=== PATIENT | female | born 1960 | race Caucasian/White ===

== ENCOUNTER 2024-08-19 04:15 | Emergency (ER) | payer OTHER ==
[~2024-08-19] VITALS: Ht 160 cm; Wt 56.7 kg
[2024-08-19] MEDS ORDERED: Ipratropium/Albuterol SulF 2.5-0.5MG/3 ML Amp INH ONE (06:05)
[2024-08-19] MEDS ORDERED: Fluticasone 0.05% Nasal Spray SCH (06:05)
[2024-08-19] MEDS ORDERED: Albuterol 2.5 MG/3 ML VIAL INH SCH (06:45)
[2024-08-19] MEDS ORDERED: DELTASONE20 MG PO (07:01)
== END 2024-08-19 07:23 | disposition home or self-care (01) ==
LOC: ER 04:15
DX: R05.3 Chronic cough (principal); Z88.2 Allergy status to sulfonamides
CPT/HCPCS: 71046; 87081; 87430; 94640; 94644; 94664; 99284-25; A9270

== ENCOUNTER 2024-10-30 22:16 | Emergency (ER) | payer OTHER ==
[~2024-10-30] VITALS: Ht 160 cm; Wt 56.7 kg
[~2024-10-30 22:16] MED LIST: DELTASONE20 MG PO
[2024-10-30] MEDS ORDERED: Ipratropium/Albuterol SulF 2.5-0.5MG/3 ML Amp INH PRN (22:30)
[2024-10-30 22:44] LABS: BASOPHILS ABSOLUTE AUTO 0.08 K/mm3 (0.00-0.23); BASOPHILS PERCENT AUTO 1 % (0-2); EOSINOPHILS ABSOLUTE AUTO 0.52 K/mm3 (0.00-0.68); EOSINOPHILS PERCENT AUTO 6 % (0-6); Hematocrit 42.9 % (33.0-51.0); Hemoglobin 14.4 g/dL (11.5-16.0); IMMATURE GRAN ABSOLUTE AUTO 0.09 K/mm3 (0.00-0.10); IMMATURE GRAN PERCENT AUTO 1 % (0-1); LYMPHOCYTES ABSOLUTE AUTO 3.18 K/mm3 (0.84-5.20); LYMPHOCYTES PERCENT AUTO 35 % (21-46); MONOCYTES ABSOLUTE AUTO 0.68 K/mm3 (0.16-1.47); MONOCYTES PERCENT AUTO 7 % (4-13); Mean Corpuscular HGB 32.1 pg (26.0-34.0); Mean Corpuscular HGB Conc 33.6 g/dL (31.5-36.5); Mean Corpuscular Volume 96 fL (80-100); Mean Platelet Volume 9.1 fL (9.1-12.4); NEUTROPHILS ABSOLUTE AUTO 4.65 K/mm3 (1.96-9.15); NEUTROPHILS PERCENT AUTO 50 % (41-73); Platelet Count 265 K/mm3 (150-400); RDW Coefficient Variation 12.7 % (11.7-14.2); RDW Standard Deviation 45.4 fL (35.1-46.3); Red Blood Cell Count 4.48 M/mm3 (3.80-5.20)
[2024-10-30 23:04] LABS: Albumin, Blood 3.3 g/dL (3.4-5.0); Albumin/Globulin Ratio 0.9 (0.8-1.8); Bilirubin, Total 0.6 mg/dL (0.1-1.0); Bun/Creatinine Ratio 12.5 (12.0-20.0); Creatinine, Blood 0.88 mg/dL (0.40-1.00); Globulin, Blood 3.7 g/dL (2.2-4.0); Magnesium, Blood 1.8 mg/dL (1.6-2.4); Potassium, Blood 3.6 mmol/L (3.5-5.5)
[2024-10-30 23:46] LABS: Influenza A, PCR NEGATIVE (NEGATIVE); Influenza B, PCR NEGATIVE (NEGATIVE); Resp Syncytial Virus, PCR NEGATIVE (NEGATIVE); SARS-Cov-2 (COVID-19) PCR, MMC NEGATIVE (NEGATIVE)
[2024-10-30] MEDS ORDERED: Albuterol HFA200 ACT/6.7 GM INH INH ONE (23:50)
[2024-10-31] MEDS ORDERED: RX Prepack Albuterol 1 PREPACK/6.7 GM INH UD ONE (00:25)
[2024-10-31] MEDS ORDERED: MethylPREDNISolone Sod Succ 125 MG Vial IV ONE (00:25)
== END 2024-10-31 01:04 | disposition home or self-care (01) ==
LOC: ER 22:16
PROVIDERS: Student in an Organized Health Care Education/Training Program
DX: J44.1 Chronic obstructive pulmonary disease with (acute) exacerbation (principal); Z88.2 Allergy status to sulfonamides; Z79.52 Long term (current) use of systemic steroids
CPT/HCPCS: 0241U; 71045; 80053; 83735; 85025; 93005; 93010; 94640; 94664; 99285-25; A9270; J2919

== ENCOUNTER 2024-11-11 12:27 | Emergency (ER) | payer OTHER ==
[~2024-11-11] VITALS: Ht 160 cm; Wt 56.7 kg
== END 2024-11-11 16:48 | disposition home or self-care (01) ==
LOC: ER 12:27
DX: M25.511 Pain in right shoulder (principal); Z79.52 Long term (current) use of systemic steroids; Z88.2 Allergy status to sulfonamides
CPT/HCPCS: 73030; 73060; 99283-25

== ENCOUNTER 2024-11-28 07:58 | Inpatient (IN) | payer OTHER ==
[~2024-11-28] VITALS: Ht 160 cm; Wt 55.5 kg
[2024-11-28] MEDS ORDERED: Albuterol 2.5 MG/3 ML VIAL INH SCH (08:20)
[2024-11-28] MEDS ORDERED: NS 1,000 ML IV SCH (08:20)
[2024-11-28 08:46] LABS: BASOPHILS ABSOLUTE AUTO 0.07 K/mm3 (0.00-0.23); BASOPHILS PERCENT AUTO 0 % (0-2); EOSINOPHILS PERCENT AUTO 1 % (0-6); Hematocrit 40.8 % (33.0-51.0); Hemoglobin 13.5 g/dL (11.5-16.0); IMMATURE GRAN ABSOLUTE AUTO 0.05 K/mm3 (0.00-0.10); IMMATURE GRAN PERCENT AUTO 0 % (0-1); LYMPHOCYTES ABSOLUTE AUTO 2.48 K/mm3 (0.84-5.20); LYMPHOCYTES PERCENT AUTO 16 % (21-46); MONOCYTES PERCENT AUTO 4 % (4-13); Mean Corpuscular HGB 32.5 pg (26.0-34.0); Mean Corpuscular HGB Conc 33.1 g/dL (31.5-36.5); Mean Corpuscular Volume 98 fL (80-100); Mean Platelet Volume 8.7 fL (9.1-12.4); NEUTROPHILS ABSOLUTE AUTO 12.36 K/mm3 (1.96-9.15); NEUTROPHILS PERCENT AUTO 79 % (41-73); Platelet Count 238 K/mm3 (150-400); RDW Coefficient Variation 13.1 % (11.7-14.2); Red Blood Cell Count 4.16 M/mm3 (3.80-5.20); White Blood Cell Count 15.66 K/mm3 (4.00-11.30)
[2024-11-28 09:14] LABS: Albumin, Blood 3.1 g/dL (3.4-5.0); Albumin/Globulin Ratio 0.9 (0.8-1.8); Bilirubin, Total 0.7 mg/dL (0.1-1.0); Bun/Creatinine Ratio 18.7 (12.0-20.0); Calcium, Blood 9.2 mg/dL (8.5-10.1); Creatinine, Blood 0.8 mg/dL (0.40-1.00); Globulin, Blood 3.5 g/dL (2.2-4.0); Potassium, Blood 3.5 mmol/L (3.5-5.5); Total Protein, Blood 6.6 g/dL (6.4-8.2)
[2024-11-28 09:18] LABS: CORONAVIRUS COVID-19 AG Negative (NEGATIVE); INFLUENZA A AG Negative (NEGATIVE); INFLUENZA B AG Negative (NEGATIVE)
[2024-11-28] MEDS ORDERED: Azithromycin 500 MG in NS 250 ML IV ONE (09:20)
[2024-11-28] MEDS ORDERED: CefTRIAXone Sodium 1,000 MG in NS 100 ML IV ONE (09:20)
[2024-11-28] MEDS ORDERED: Acetaminophen 325 MG TABLET PO PRN (11:30)
[2024-11-28] MEDS ORDERED: FLU VACC TS2024-25(6MOS UP)/PF 45 MCG/0.5 ML SYRINGE IM PRN (11:30)
[2024-11-28] MEDS ORDERED: Ondansetron HCl 2 MG / ML 2ML Vial IV PRN (11:35)
[2024-11-28] MEDS ORDERED: Lactated Ringer's 1,000 ML IV SCH (11:35)
[2024-11-28] MEDS ORDERED: Ipratropium/Albuterol SulF 2.5-0.5MG/3 ML Amp INH SCH (13:05)
[2024-11-28] MEDS ORDERED: Albuterol 2.5 MG/3 ML VIAL INH PRN (13:05)
[2024-11-28 14:22] VITALS: BP 117/64
[2024-11-28] MEDS ORDERED: GENVOYA TABLET1 EAC1 PO (14:51)
[2024-11-28] MEDS ORDERED: IBUP400 PO ×2 (14:52)
[2024-11-28] MEDS ORDERED: Ibuprofen 400 MG Tab PO PRN (17:35)
--- NOTE | 2024-11-28 17:38 | NUR ---
LATE ENTRY- PT ADMIT FROM ED, ALERT AND ORIENTED X4, ABLE TO EXPRESS NEEDS. SOB WITH EXERTION. 2L NC, R/A BASELINE, INDEPENDENT IN THE ROOM, PT CALLS APPROPRIATELY
[2024-11-28 19:59] VITALS: BP 135/79
[2024-11-28] MEDS ORDERED: MethylPREDNISolone Sod Succ 125 MG Vial IV SCH (21:00)
[2024-11-28] MEDS ORDERED: Docusate Sodium 100 MG Cap PO SCH (21:00)
[2024-11-28] MEDS ORDERED: Lactobacil 2-S.Thermo-Bifido 1 1 Cap PO SCH (21:00)
[2024-11-28] MEDS ORDERED: GuaiFENesin 600 MG TabCR PO SCH (21:00)
[2024-11-29] MEDS ORDERED: Guaifenesin/Dextromethorphan Syrup 5 ML UDC PO PRN (01:30)
--- NOTE | 2024-11-29 03:54 | NUR ---
PSYCHIC READER SUMMARY: PT A&O X4, MAKES NEEDS KNOWN TO STAFF AND USES CALL LIGHT APPROPRIATELY. PT ADMITTED WITH DX OF SEPSIS SECONDARY TO PNEUMONIA. SOB WITH EXERTION. 1L NC, RA AT BASELINE. TELEMETRY IN PLACE, SINUS RHYTHM IN THE 80'S. PT INDEPENDENT IN ROOM. NEW ORDER OBTAINED FOR ROBITUSSIN PRN. VSS. NO ACUTE CHANGES THIS SHIFT. BED IN LOWEST POSITION. CALL LIGHT IN REACH. CARES CONTINUE ORDERED.
[2024-11-29 04:49] VITALS: BP 145/78
[2024-11-29 06:03] LABS: Hematocrit 41.4 % (33.0-51.0); Hemoglobin 13.9 g/dL (11.5-16.0); Mean Corpuscular HGB 32.6 pg (26.0-34.0); Mean Corpuscular HGB Conc 33.6 g/dL (31.5-36.5); Mean Corpuscular Volume 97 fL (80-100); Mean Platelet Volume 9.1 fL (9.1-12.4); Platelet Count 255 K/mm3 (150-400); RDW Coefficient Variation 12.9 % (11.7-14.2); RDW Standard Deviation 46.2 fL (35.1-46.3); Red Blood Cell Count 4.26 M/mm3 (3.80-5.20); White Blood Cell Count 16.62 K/mm3 (4.00-11.30)
[2024-11-29 06:29] LABS: Albumin, Blood 2.6 g/dL (3.4-5.0); Albumin/Globulin Ratio 0.7 (0.8-1.8); Bilirubin, Total 0.8 mg/dL (0.1-1.0); Calcium, Blood 9.4 mg/dL (8.5-10.1); Creatinine, Blood 0.77 mg/dL (0.40-1.00); Globulin, Blood 3.9 g/dL (2.2-4.0); Potassium, Blood 4.3 mmol/L (3.5-5.5); Total Protein, Blood 6.5 g/dL (6.4-8.2)
[2024-11-29 06:31] LABS: BAND PERCENT MAN 1 % (0-8); BASOPHILS PERCENT MAN 0 % (0-2); EOSINOPHILS PERCENT MAN 0 % (0-6); LYMPHOCYTES ABSOLUTE MAN 0.99 K/mm3 (0.84-5.20); LYMPHOCYTES PERCENT MAN 6 % (21-46); MONOCYTES PERCENT MAN 0 % (4-13); NEUTROPHILS ABSOLUTE MAN 15.62 K/mm3 (1.96-9.15); SEG NEUTROPHILS PERCENT MAN 93 % (41-73); TOTAL CELLS COUNTED 100
[2024-11-29 08:04] VITALS: BP 138/81
[2024-11-29] MEDS ORDERED: Azithromycin 500 MG in NS 250 ML IV SCH (09:00)
[2024-11-29] MEDS ORDERED: Enoxaparin 40 MG/0.4 ML SYR SC SCH (09:00)
[2024-11-29] MEDS ORDERED: CefTRIAXone Sodium 1,000 MG in NS 100 ML IV SCH (09:00)
[2024-11-29 15:31] VITALS: BP 117/71
--- NOTE | 2024-11-29 17:57 | NUR ---
PT PLEASANT TODAY. TOOK SHOWER WITHOUT ASSISTANCE. COUGH CONTINUES. TELE D/C TODAY. LUNGS COARSE AND WHEEZY TODAY. PT STATES MINOR IMPROVEMENT FELT. NONEW CONCERNS NOTED. BED IN LOW POSITION, CALL LITE IN REACH, CALLS APPROP
[2024-11-29 20:37] VITALS: BP 123/58
[2024-11-30 04:37] VITALS: BP 125/69
--- NOTE | 2024-11-30 05:56 | NUR ---
SNATH HANDLE ASSEMBLER SUMMARY: PT A&O X4. MAKES NEEDS KNONW. INDEPENDENT IN ROOM. DENIES PAIN. IV ABO CONTINUES FOR PNEUMONIA. VSS. PRN ROBITUSSIN GIVEN X2 FOR COUGH; EFFECTIVE. SATS ABOVE 90% ON RA. NO ACUTE CHANGES THIS SHIFT. CALL LIGHT IN REACH. BED IN LOWEST POSITION. CARES CONTINUE ORDERED.
[2024-11-30 06:07] LABS: BASOPHILS ABSOLUTE AUTO 0.02 K/mm3 (0.00-0.23); BASOPHILS PERCENT AUTO 0 % (0-2); EOSINOPHILS PERCENT AUTO 0 % (0-6); Hematocrit 35.6 % (33.0-51.0); Hemoglobin 12.1 g/dL (11.5-16.0); IMMATURE GRAN ABSOLUTE AUTO 0.08 K/mm3 (0.00-0.10); IMMATURE GRAN PERCENT AUTO 1 % (0-1); LYMPHOCYTES ABSOLUTE AUTO 1.26 K/mm3 (0.84-5.20); LYMPHOCYTES PERCENT AUTO 8 % (21-46); MONOCYTES ABSOLUTE AUTO 0.23 K/mm3 (0.16-1.47); MONOCYTES PERCENT AUTO 2 % (4-13); Mean Corpuscular HGB 33.1 pg (26.0-34.0); Mean Corpuscular Volume 97 fL (80-100); Mean Platelet Volume 9.1 fL (9.1-12.4); NEUTROPHILS ABSOLUTE AUTO 13.69 K/mm3 (1.96-9.15); NEUTROPHILS PERCENT AUTO 90 % (41-73); Platelet Count 238 K/mm3 (150-400); RDW Coefficient Variation 12.9 % (11.7-14.2); RDW Standard Deviation 45.8 fL (35.1-46.3); Red Blood Cell Count 3.66 M/mm3 (3.80-5.20); White Blood Cell Count 15.28 K/mm3 (4.00-11.30)
[2024-11-30 06:51] LABS: Bun/Creatinine Ratio 18.2 (12.0-20.0); Calcium, Blood 9.2 mg/dL (8.5-10.1); Creatinine, Blood 0.66 mg/dL (0.40-1.00); Potassium, Blood 4.3 mmol/L (3.5-5.5)
[2024-11-30 07:55] VITALS: BP 126/73
[2024-11-30] MEDS ORDERED: CEFP200 PO (13:04)
[2024-11-30] MEDS ORDERED: GUAI600T33 PO (13:05)
[2024-11-30] MEDS ORDERED: PRED20 PO (13:13)
[2024-11-30] MEDS ORDERED: VISBIOME 112.51 EACH PO (13:16)
--- NOTE | 2024-11-30 14:40 | NUR ---
PT DISCHARGED HOME. DISCHARGE INSTRUCTIONS DISCUSSED WITH PT. NO QUESTIONS OR CONCERNS AT THIS TIME
== END 2024-11-30 14:00 | disposition home or self-care (01) | DRG 871 ==
LOC: ER 07:58 → MEDS 07:59 → ERHOLD 07:59 → MEDS 14:20
PROVIDERS: Emergency Medicine; ADMIT Internal Medicine
DX: A41.9 Sepsis, unspecified organism (principal); J18.9 Pneumonia, unspecified organism; J96.01 Acute respiratory failure with hypoxia; R65.20 Severe sepsis without septic shock; Z21 Asymptomatic human immunodeficiency virus [HIV] infection status; J45.909 Unspecified asthma, uncomplicated; Z88.2 Allergy status to sulfonamides; Z79.899 Other long term (current) drug therapy
CPT/HCPCS: 36415; 71045; 80048; 80053; 83605; 84145; 85025; 87040; 87070; 87205; 87428-QW; 87449; 94640; 94644; 94664; 94760; 96361; 96365; 96366; 96368; 96372; 96375; 96376; 99285-25; A9270; G0378; J0456; J0696; J1650; J2919; J7030; J7050; J7120

== ENCOUNTER 2025-06-01 16:12 | Emergency (ER) | payer OTHER ==
[~2025-06-01] VITALS: Ht 160 cm; Wt 54.9 kg
[~2025-06-01 16:12] MED LIST changes: +CEFP200 PO; +GENVOYA TABLET1 EAC1 PO; +GUAI600T33 PO; +IBUP400 PO; +PRED20 PO; +VISBIOME 112.51 EACH PO
[2025-06-01] MEDS ORDERED: Ketorolac Tromethamine 15mg Vial IM ONE (17:55)
== END 2025-06-01 19:06 | disposition home or self-care (01) ==
LOC: ER 16:12
DX: M25.552 Pain in left hip (principal); Z79.52 Long term (current) use of systemic steroids; Z79.899 Other long term (current) drug therapy; Z88.2 Allergy status to sulfonamides
CPT/HCPCS: 73502; 96372; 99283-25; A9270; J1885

== ENCOUNTER 2025-08-27 10:08 | Emergency (ER) | payer OTHER ==
[~2025-08-27] VITALS: Ht 160 cm; Wt 54.4 kg
[2025-08-27] MEDS ORDERED: Albuterol 2.5 MG/3 ML VIAL INH SCH (10:25)
[2025-08-27 10:40] LABS: BASOPHILS ABSOLUTE AUTO 0.07 K/mm3 (0.00-0.23); BASOPHILS PERCENT AUTO 0 % (0-2); EOSINOPHILS ABSOLUTE AUTO 2.08 K/mm3 (0.00-0.68); EOSINOPHILS PERCENT AUTO 10 % (0-6); Hematocrit 37.6 % (33.0-51.0); Hemoglobin 13.1 g/dL (11.5-16.0); IMMATURE GRAN ABSOLUTE AUTO 0.08 K/mm3 (0.00-0.10); IMMATURE GRAN PERCENT AUTO 0 % (0-1); LYMPHOCYTES ABSOLUTE AUTO 2.05 K/mm3 (0.84-5.20); LYMPHOCYTES PERCENT AUTO 10 % (21-46); MONOCYTES ABSOLUTE AUTO 0.68 K/mm3 (0.16-1.47); MONOCYTES PERCENT AUTO 3 % (4-13); Mean Corpuscular HGB Conc 34.8 g/dL (31.5-36.5); Mean Corpuscular Volume 95 fL (80-100); NEUTROPHILS ABSOLUTE AUTO 15.72 K/mm3 (1.96-9.15); NEUTROPHILS PERCENT AUTO 76 % (41-73); NRBC ABSOLUTE 0.00 K/mm3 (0.00-0.02); NRBC Auto 0.0 /100 WBC (0.0-0.2); Platelet Count 297 K/mm3 (150-400); RDW Coefficient Variation 11.6 % (11.7-14.2); RDW Standard Deviation 40.4 fL (35.1-46.3)
[2025-08-27 11:06] LABS: Alanine Aminotransfer (ALT/SGP 17.0 U/L (12-78); Albumin, Blood 2.9 g/dL (3.4-5.0); Albumin/Globulin Ratio 0.7 (0.8-1.8); Anion Gap 10.0 mmol/L (3-11); Aspartate Aminotrans (AST/SGOT 13.0 U/L (12-37); Bilirubin, Total 0.5 mg/dL (0.1-1.0); Blood Urea Nitrogen 13.0 mg/dL (8-24); CO2, Blood 23.0 mmol/L (21-32); Calcium, Blood 9.3 mg/dL (8.5-10.1); Chloride, Blood 108.0 mmol/L (98-108); Creatinine, Blood 1.1 mg/dL (0.40-1.00); Globulin, Blood 4.0 g/dL (2.2-4.0); Glucose, Blood 100.0 mg/dL (70-99); Potassium, Blood 3.6 mmol/L (3.5-5.5); Sodium, Blood 137.0 mmol/L (136-145); Total Protein, Blood 6.9 g/dL (6.4-8.2)
[2025-08-27 11:47] LABS: Influenza A, PCR NEGATIVE (NEGATIVE); Influenza B, PCR NEGATIVE (NEGATIVE); Resp Syncytial Virus, PCR NEGATIVE (NEGATIVE); SARS-Cov-2 (COVID-19) PCR, MMC NEGATIVE (NEGATIVE)
[2025-08-27] MEDS ORDERED: NS 1,000 ML IV SCH (12:30)
[2025-08-27] MEDS ORDERED: Doxycycline Hyclate 100 MG in Dextrose 5% 250 ML IV ONE (12:30)
[2025-08-27] MEDS ORDERED: CefTRIAXone Sodium 1,000 MG in NS 100 ML IV ONE (12:30)
[2025-08-27] MEDS ORDERED: Ondansetron HCl 2 MG / ML 2ML Vial IV ONE (12:35)
[2025-08-27] MEDS ORDERED: ALBU90OI INH (14:45)
[2025-08-27] MEDS ORDERED: ALBU2.5V5 INH (14:45)
== END 2025-08-27 15:24 | disposition home or self-care (01) ==
LOC: ER 10:08
PROVIDERS: Physician Assistant
DX: R06.02 Shortness of breath (principal); R05.9 Cough, unspecified; Z79.899 Other long term (current) drug therapy; Z88.2 Allergy status to sulfonamides
CPT/HCPCS: 36415; 71045; 80053; 83605; 84484; 85025; 87637; A9270; J0696; J2405; J2919; J7030; J7060

== ENCOUNTER 2025-09-05 08:04 | Inpatient (IN) | payer OTHER ==
[~2025-09-05] VITALS: Ht 160 cm; Wt 52.1 kg
[~2025-09-05 08:04] MED LIST changes: +ALBU2.5V5 INH; +ALBU90OI INH
[2025-09-05] MEDS ORDERED: Ipratropium/Albuterol SulF 2.5-0.5MG/3 ML Amp INH PRN (08:15)
[2025-09-05 08:34] LABS: BASOPHILS ABSOLUTE AUTO 0.08 K/mm3 (0.00-0.23); BASOPHILS PERCENT AUTO 1 % (0-2); EOSINOPHILS ABSOLUTE AUTO 1.79 K/mm3 (0.00-0.68); EOSINOPHILS PERCENT AUTO 11 % (0-6); Hematocrit 39.6 % (33.0-51.0); Hemoglobin 13.7 g/dL (11.5-16.0); IMMATURE GRAN ABSOLUTE AUTO 0.05 K/mm3 (0.00-0.10); IMMATURE GRAN PERCENT AUTO 0 % (0-1); LYMPHOCYTES ABSOLUTE AUTO 2.62 K/mm3 (0.84-5.20); LYMPHOCYTES PERCENT AUTO 17 % (21-46); MONOCYTES ABSOLUTE AUTO 0.73 K/mm3 (0.16-1.47); MONOCYTES PERCENT AUTO 5 % (4-13); Mean Corpuscular HGB Conc 34.6 g/dL (31.5-36.5); Mean Corpuscular Volume 94 fL (80-100); NEUTROPHILS ABSOLUTE AUTO 10.55 K/mm3 (1.96-9.15); NEUTROPHILS PERCENT AUTO 67 % (41-73); NRBC ABSOLUTE 0.00 K/mm3 (0.00-0.02); NRBC Auto 0.0 /100 WBC (0.0-0.2); Platelet Count 371 K/mm3 (150-400); RDW Coefficient Variation 11.5 % (11.7-14.2); RDW Standard Deviation 39.2 fL (35.1-46.3)
[2025-09-05 08:58] LABS: Alanine Aminotransfer (ALT/SGP 25.0 U/L (12-78); Albumin, Blood 2.9 g/dL (3.4-5.0); Albumin/Globulin Ratio 0.7 (0.8-1.8); Anion Gap 10.0 mmol/L (3-11); Aspartate Aminotrans (AST/SGOT 16.0 U/L (12-37); Bilirubin, Total 0.5 mg/dL (0.1-1.0); Blood Urea Nitrogen 9.0 mg/dL (8-24); CO2, Blood 23.0 mmol/L (21-32); Calcium, Blood 9.2 mg/dL (8.5-10.1); Chloride, Blood 107.0 mmol/L (98-108); Creatinine, Blood 0.72 mg/dL (0.40-1.00); Globulin, Blood 4.3 g/dL (2.2-4.0); Glucose, Blood 98.0 mg/dL (70-99); Potassium, Blood 3.6 mmol/L (3.5-5.5); Sodium, Blood 136.0 mmol/L (136-145); Total Protein, Blood 7.2 g/dL (6.4-8.2)
[2025-09-05 10:24] LABS: pH Blood Venous 7.39 (7.34-7.37)
[2025-09-05] MEDS ORDERED: CefTRIAXone Sodium 1,000 MG in NS 100 ML IV ONE (10:55)
[2025-09-05] MEDS ORDERED: NS 1,000 ML IV SCH (10:55)
[2025-09-05] MEDS ORDERED: Ipratropium/Albuterol SulF 2.5-0.5MG/3 ML Amp INH ONE (11:05)
[2025-09-05] MEDS ORDERED: FLU VACC TS2025-26(6MOS UP)/PF 45 MCG/0.5 ML SYRINGE IM SCH (12:00)
[2025-09-05] MEDS ORDERED: Ipratropium/Albuterol SulF 2.5-0.5MG/3 ML Amp INH SCH (12:00)
[2025-09-05 13:41] VITALS: BP 155/93
--- NOTE | 2025-09-05 14:23 | NUR ---
ADMIT PT ADMITTED TO MEDICAL FLOOR. ORIENTED TO ROOM AND CALL LIGHT. BEVERAGES & SNACKS PROVIDED. RESP PANEL COLLECTED & SENT TO LAB. PT SATING IN THE 90S ON RA AND DENIES SOB AT TIME OF ADMIT.
[2025-09-05 15:45] VITALS: BP 161/92
[2025-09-05] MEDS ORDERED: Guaifenesin/Dextromethorphan Syrup 5 ML UDC PO PRN (16:40)
--- NOTE | 2025-09-05 17:50 | NUR ---
SHIFT SUMMARY PT ADMITTED TODAY. AWAITING RESP PANEL RESULTS. PT HAS YET TO HAVE A BM, SAMPLE NEEDED. PT STATES SHE WILL ALERT STAFF WHEN SHE HAS A BM. DR. PRIDE NOTIFIED OF PT HACKING COUGH AND ORDERED ROBETUSSIN FOR RELIEF. PT STATES SHE WILL BRING HER HOME MED IN TOMORROW FOR PHARMACY TO VERIFY. PT DENIES N/V SINCE ADMIT. TOLERATING PO INTAKE IN SMALL AMOUNTS. NO OTHER ACUTE CHANGES IN ASSESSMENT AT THIS TIME. CALL LIGHT IN REACH.
[2025-09-05 17:52] LABS: Influenza A/2009-H1 Not Detected (NOT DETECT); SARS-Cov-2 (COVID-19), BioFire Not Detected (NOT DETECT)
--- NOTE | 2025-09-05 18:33 | NUR ---
GI PANEL PENDING. CANCELLED BY ACCIDENT. RESULTS STILL NEEDED. LAB NOTIFIED THAT RESULTS ARE STILL NEEDED.
[2025-09-05 19:06] LABS: Campylobacter Sp Not Detected (NOT DETECT)
[2025-09-05 19:07] LABS: E. Coli O157 Not Detected (NOT DETECT); Enteroaggregative E. coli-EAEC Not Detected (NOT DETECT); Enteropathogenic E. coli-EPEC Not Detected (NOT DETECT); Enterotoxigenic E. coli-ETEC Not Detected (NOT DETECT); Salmonella Sp Not Detected (NOT DETECT); Shiga Toxin-prod E. coli-STEC Not Detected (NOT DETECT); Shigella/Enteroin E. coli-EIEC Not Detected (NOT DETECT); Vibrio Sp Not Detected (NOT DETECT)
[2025-09-05 20:01] VITALS: BP 163/94
[2025-09-05 22:51] VITALS: BP 170/82
[2025-09-06 03:18] VITALS: BP 164/84
--- NOTE | 2025-09-06 04:50 | NUR ---
SHIFT SUMMARY 65 YR F. FULL CODE. PT GI PANEL CAME BACK NEGATIVE SO ISO CART CAN BE REMOVED. PT STATES SHE IS FEELING BETTER BUT STILL HAS A HACKING COUGH. ROBITUSSIN ORDERED YESTERDAY AND TESSALON PEARLS WERE ORDERED THIS SHIFT. BOTH APPEAR TO HELP RELEIVE THE COUGHING FITS. PT IS ALSO REQUESTING REGULAR BREATHING TXS. SHE STATES THAT SHE FEELS THAT THE SOLUMEDROL IS HELPING ALOT WELL. PT IS A&O X 4 AND INDEPENDANT IN THE ROOM. CALLS APPROPRIATELY AND IS ABLE TO MAKE HER NEEDS KNOWN. BED IN LOW POSITION AND CALL LIGHT IN REACH.
[2025-09-06 07:25] VITALS: BP 163/92
[2025-09-06] MEDS ORDERED: Enoxaparin 40 MG/0.4 ML SYR SC SCH (09:00)
[2025-09-06 11:56] VITALS: BP 157/79
[2025-09-06] MEDS ORDERED: NS 250 ML IV PRN (13:30)
[2025-09-06 16:26] VITALS: BP 157/83
[2025-09-06 17:44] LABS: % CD4 41 % (32-64); ABSOLUTE CD4 356 cells/uL (430-1800)
--- NOTE | 2025-09-06 17:54 | NUR ---
SUMMARY CONTINUING IV STEROIDS, IV ANTIBX AND NEBS. PRN ROBITUSSIN AND [id number] GIVEN ONCE THIS SHIFT EACH. PT CONTINUES TO HAVE GACKING MINIMALLY PRODUCTIVE COUGH. IND IN ROOM. UP IN SHOWER TODAY. NO ACUTE EVENTS ON TELE.
[2025-09-06 19:23] VITALS: BP 158/79
[2025-09-07 00:26] VITALS: BP 162/93
[2025-09-07 03:36] VITALS: BP 169/90
[2025-09-07 07:26] VITALS: BP 151/85
--- NOTE | 2025-09-07 11:02 | NUR ---
Physician Contacted Patient c/o headache w/ no tylenol ordered. Phoned Dr. Melody Garcias and received T.O. to give tylenol 650mg PO q6h PRN for mild pain/fever. Order updated.
[2025-09-07 11:30] VITALS: BP 161/89
[2025-09-07 16:18] VITALS: BP 148/80
--- NOTE | 2025-09-07 17:11 | NUR ---
SHIFT SUMMARY NO ACUTE CHANGES, A/Ox4, INDEPENDENT IN THE ROOM. VITALS STABLE. COUGH MEDICATIONS ADMINISTERED PRN. PT REMAINS ON RA T/O SHIFT SATING ABOVE 92%. PT REPORTS SOB IMPROVING. CONTINUES ON BREATHING TX. SWITCHED TO PO STEROIDS. AMLODIPINE STARTED. PT REPORTS BM TODAY. PT SHOWERED. TELE MONITOR REMAINS IN PLACE - SR @ 96 c PAC. PT CURRENTLY RESTING IN BED WITH BED IN LOWEST POSITION AND CALL LIGHT IN REACH. IV SALINE LOCKED. PT APPEARS COMFORTABLE AND IN NO APPARENT DISTRESS.
[2025-09-07 19:22] VITALS: BP 172/91
[2025-09-08 00:25] VITALS: BP 153/97
[2025-09-08 04:08] VITALS: BP 166/94
[2025-09-08 07:35] VITALS: BP 143/93
[2025-09-08] MEDS ORDERED: AMLO10 PO (12:00)
[2025-09-08] MEDS ORDERED: BENZ100A PO (12:00)
[2025-09-08] MEDS ORDERED: GUAI600T33 PO (12:02)
[2025-09-08] MEDS ORDERED: FAMO20 PO (12:02)
[2025-09-08] MEDS ORDERED: Q-Tussin100 MG/5 M PO (12:02)
[2025-09-08] MEDS ORDERED: PRED20 PO (12:03)
[2025-09-08] MEDS ORDERED: FLUTICASONE-SA1 EAC1 INH (12:03)
[2025-09-08] MEDS ORDERED: IPRAT-ALBUT 0.5-3 ML INH (12:03)
[2025-09-08] MEDS ORDERED: ALBU90OI INH (12:04)
[2025-09-08 12:07] VITALS: BP 161/77
--- NOTE | 2025-09-08 12:44 | NUR ---
DISCHARGE PT AOX4, COOPERATIVE, ABLE TO MAKE NEEDS KNOWN. PT IS IND IN ROOM, TOLERATING MEDICATIONS. GLOBAL TRANSPORTATION MANAGER DC'D IV AND TELE WITHOUT COMPLICATIONS. NEW MEDS FAXED TO [facility] PER PT REQUEST. PT IS WAITING FOR TRANSPORTATION TO ARRIVE BEFORE LEAVING ROOM. WC PROVIDED.
== END 2025-09-08 13:13 | disposition home or self-care (01) | DRG 192 ==
LOC: ER 08:04 → MEDS 08:05 → ENPENDDIS 09-08 10:16 → MEDS 09-08 13:13
PROVIDERS: Emergency Medicine; Student in an Organized Health Care Education/Training Program; ADMIT Internal Medicine
DX: J44.1 Chronic obstructive pulmonary disease with (acute) exacerbation (principal); Z21 Asymptomatic human immunodeficiency virus [HIV] infection status; R19.7 Diarrhea, unspecified; D72.829 Elevated white blood cell count, unspecified; T38.0X5A Adverse effect of glucocorticoids and synthetic analogues, initial encounter; Z88.2 Allergy status to sulfonamides; Z79.899 Other long term (current) drug therapy
CPT/HCPCS: 0202U; 36415; 71046; 80053; 82803; 83605; 83880; 84484; 85025; 85379; 86361; 87507; 93005; 93010; 94640; 94664; 94760; 96374; 96375; 96376; 99285-25; A9270; G0378; J0456; J0696; J1650; J2919; J7030; J7050; J7512

== ENCOUNTER 2025-10-01 09:07 | Emergency (ER) | payer OTHER ==
[~2025-10-01] VITALS: Ht 157.5 cm; Wt 54.0 kg
[~2025-10-01 09:07] MED LIST changes: +AMLO10 PO; +BENZ100A PO; +FAMO20 PO; +FLUTICASONE-SA1 EAC1 INH; +IPRAT-ALBUT 0.5-3 ML INH; +Q-Tussin100 MG/5 M PO
[2025-10-01] MEDS ORDERED: Ipratropium/Albuterol SulF 2.5-0.5MG/3 ML Amp INH ONE (09:50)
[2025-10-01 10:07] LABS: BASOPHILS ABSOLUTE AUTO 0.09 K/mm3 (0.00-0.23); BASOPHILS PERCENT AUTO 1 % (0-2); EOSINOPHILS ABSOLUTE AUTO 1.59 K/mm3 (0.00-0.68); EOSINOPHILS PERCENT AUTO 14 % (0-6); Hematocrit 40.2 % (33.0-51.0); Hemoglobin 13.3 g/dL (11.5-16.0); IMMATURE GRAN ABSOLUTE AUTO 0.02 K/mm3 (0.00-0.10); IMMATURE GRAN PERCENT AUTO 0 % (0-1); LYMPHOCYTES ABSOLUTE AUTO 3.33 K/mm3 (0.84-5.20); LYMPHOCYTES PERCENT AUTO 29 % (21-46); MONOCYTES ABSOLUTE AUTO 0.86 K/mm3 (0.16-1.47); MONOCYTES PERCENT AUTO 7 % (4-13); Mean Corpuscular HGB Conc 33.1 g/dL (31.5-36.5); Mean Corpuscular Volume 97 fL (80-100); NEUTROPHILS ABSOLUTE AUTO 5.78 K/mm3 (1.96-9.15); NEUTROPHILS PERCENT AUTO 50 % (41-73); NRBC ABSOLUTE 0.00 K/mm3 (0.00-0.02); NRBC Auto 0.0 /100 WBC (0.0-0.2); Platelet Count 342 K/mm3 (150-400); RDW Coefficient Variation 13.1 % (11.7-14.2); RDW Standard Deviation 46.9 fL (35.1-46.3)
[2025-10-01 10:28] LABS: Alanine Aminotransfer (ALT/SGP 19.0 U/L (12-78); Albumin, Blood 3.3 g/dL (3.4-5.0); Albumin/Globulin Ratio 0.8 (0.8-1.8); Anion Gap 8.0 mmol/L (3-11); Aspartate Aminotrans (AST/SGOT 13.0 U/L (12-37); Bilirubin, Total 0.3 mg/dL (0.1-1.0); Blood Urea Nitrogen 13.0 mg/dL (8-24); CO2, Blood 26.0 mmol/L (21-32); Calcium, Blood 9.4 mg/dL (8.5-10.1); Chloride, Blood 110.0 mmol/L (98-108); Creatinine, Blood 0.72 mg/dL (0.40-1.00); Globulin, Blood 4.0 g/dL (2.2-4.0); Glucose, Blood 103.0 mg/dL (70-99); Potassium, Blood 3.6 mmol/L (3.5-5.5); Sodium, Blood 140.0 mmol/L (136-145); Total Protein, Blood 7.3 g/dL (6.4-8.2)
[2025-10-01 10:59] LABS: Influenza A, PCR NEGATIVE (NEGATIVE); Influenza B, PCR NEGATIVE (NEGATIVE); Resp Syncytial Virus, PCR NEGATIVE (NEGATIVE); SARS-Cov-2 (COVID-19) PCR, MMC NEGATIVE (NEGATIVE)
[2025-10-01] MEDS ORDERED: Albuterol 2.5 MG/3 ML VIAL INH ONE (11:20)
[2025-10-01] MEDS ORDERED: PRED20 PO (12:08)
== END 2025-10-01 12:26 | disposition home or self-care (01) ==
LOC: ER 09:07
PROVIDERS: Student in an Organized Health Care Education/Training Program
DX: J44.1 Chronic obstructive pulmonary disease with (acute) exacerbation (principal); Z88.2 Allergy status to sulfonamides; Z79.899 Other long term (current) drug therapy
CPT/HCPCS: 71046; 80053; 85025; 87637; 93005; 93010; 96374; 99285-25; J2919